=== PATIENT | male | born 1970 | race Caucasian/White ===

== ENCOUNTER → 2016-12-11 | Outpatient (CLI) | payer BC | LOC: ECHO 12:00 | DX: R55 Syncope and collapse (principal) | CPT/HCPCS: ECHO; 93306 ==

== ENCOUNTER → 2017-05-14 | Outpatient (CLI) | payer BC | LOC: EMI 15:56 | DX: M54.2 Cervicalgia (principal); M47.892 Other spondylosis, cervical region; M48.02 Spinal stenosis, cervical region; R20.0 Anesthesia of skin | CPT/HCPCS: 72141 ==

== ENCOUNTER → 2021-02-14 | Day surgery (SDC) | payer OTHER ==
[~2021-02-14] MED LIST: ALL DAY ALLERGY10 M2 PO; AMITRIPTYLINE H25 MG PO; AMLODIPINE BESYL5 MG PO; ASPIR-TRIN325 MG PO; AUGMENTIN 875-1 EACH PO; CELEBREX100 MG PO; CETIRIZINE HCL10 MG PO; CLOPIDOGREL75 MG PO; DEPAKOTE ER500 MG PO; DIVALPROEX SOD500 MG PO; FLEXERIL 10 MG10 MG PO; IBUPROFEN600 MG PO; LIPITOR TAB 1010 MG PO; LISINOPRIL20 MG PO; METOPROLOL TART25 MG PO; NORCO 5-325 TA1 EACH PO; NORFLEX 100 MG100 MG PO; OMEPRAZOLE20 M2 PO; PLAVIX75 MG PO; PROTONIX40 MG PO; QVAR REDIHALE10.6 G1 INH; SINGULAIR10 MG PO; SUMATRIPTAN SUC50 MG PO; TRAMADOL HCL50 MG PO; Voltaren Gel 1 % TOP
== END | disposition home or self-care (01) ==
LOC: OR 07:36
DX: K29.80 Duodenitis without bleeding (principal); K26.9 Duodenal ulcer, unspecified as acute or chronic, without hemorrhage or perforation; K29.70 Gastritis, unspecified, without bleeding; K21.9 Gastro-esophageal reflux disease without esophagitis; K63.89 Other specified diseases of intestine; K52.9 Noninfective gastroenteritis and colitis, unspecified; I10 Essential (primary) hypertension; E78.00 Pure hypercholesterolemia, unspecified; J20.9 Acute bronchitis, unspecified; J30.9 Allergic rhinitis, unspecified; G43.109 Migraine with aura, not intractable, without status migrainosus; M48.02 Spinal stenosis, cervical region; G89.29 Other chronic pain; M54.5 Low back pain; Z86.73 Personal history of transient ischemic attack (TIA), and cerebral infarction without residual deficits; F17.210 Nicotine dependence, cigarettes, uncomplicated
CPT/HCPCS: J2704; J7030

== ENCOUNTER → 2021-02-18 | Outpatient (CLI) | payer OTHER | LOC: KOH-I 13:59 | DX: R91.1 Solitary pulmonary nodule (principal); R91.8 Other nonspecific abnormal finding of lung field | CPT/HCPCS: 71250 ==

== ENCOUNTER 2021-05-15 20:07 | Emergency (ER) | payer OTHER ==
[2021-05-15 21:03] LABS: HEMOGLOBIN 14.8 gm/dl (14.0-17.5); RED BLOOD COUNT 4.8 M/UL (4.20-5.50); WHITE BLOOD COUNT 8.7 K/UL (4.5-11.0)
[2021-05-15 21:19] LABS: BUN/CREATININE RATIO 21 (0-10)
== END 2021-05-15 22:37 | disposition home or self-care (01) ==
LOC: ER1 20:07
PROVIDERS: Family Medicine
DX: R25.1 Tremor, unspecified (principal); R51.9 Headache, unspecified; F17.200 Nicotine dependence, unspecified, uncomplicated; Z90.89 Acquired absence of other organs
CPT/HCPCS: 80053; 82550; 82553; 83874; 84484; 85025; 99284

== ENCOUNTER 2021-06-23 13:50 | Emergency (ER) | payer OTHER ==
[2021-06-23 15:34] LABS: HEMOGLOBIN 16.9 gm/dl (14.0-17.5); RED BLOOD COUNT 5.46 M/UL (4.20-5.50); WHITE BLOOD COUNT 11.2 K/UL (4.5-11.0)
[2021-06-23 15:53] LABS: BUN/CREATININE RATIO 15 (0-10)
== END 2021-06-23 18:27 | disposition home or self-care (01) ==
LOC: ER1 13:50
PROVIDERS: Physician Assistant Medical
DX: R51.9 Headache, unspecified (principal)
CPT/HCPCS: 70450; 80053; 85025; 85652; 86140; 96372; 99284; J1885

== ENCOUNTER 2021-07-02 15:36 | Observation (INO) | payer OTHER ==
[~2021-07-02] VITALS: Ht 177.8 cm; Wt 88.0 kg
[2021-07-02 16:26] LABS: HEMOGLOBIN 16.2 gm/dl (14.0-17.5); RED BLOOD COUNT 5.28 M/UL (4.20-5.50)
[2021-07-02 17:05] LABS: BUN/CREATININE RATIO 15 (0-10)
[2021-07-03 06:57] LABS: HEMOGLOBIN 16.7 gm/dl (14.0-17.5); RED BLOOD COUNT 5.37 M/UL (4.20-5.50); WHITE BLOOD COUNT 9.8 K/UL (4.5-11.0)
[2021-07-03 07:32] LABS: BUN/CREATININE RATIO 19 (0-10)
[2021-07-04 06:45] LABS: HEMOGLOBIN 15.9 gm/dl (14.0-17.5); RED BLOOD COUNT 5.46 M/UL (4.20-5.50); WHITE BLOOD COUNT 9.9 K/UL (4.5-11.0)
[2021-07-04 06:57] LABS: BUN/CREATININE RATIO 17 (0-10)
[2021-07-04] MEDS ORDERED: LIPITOR40 MG PO (09:24)
== END 2021-07-04 10:46 | disposition home or self-care (01) ==
LOC: ER1 15:36 → CDU 19:00 → M/S 23:43
PROVIDERS: Nurse Practitioner; ADMIT Internal Medicine
DX: R07.89 Other chest pain (principal); I10 Essential (primary) hypertension; E78.5 Hyperlipidemia, unspecified; G89.29 Other chronic pain; M54.9 Dorsalgia, unspecified; G40.909 Epilepsy, unspecified, not intractable, without status epilepticus; G43.909 Migraine, unspecified, not intractable, without status migrainosus; F17.210 Nicotine dependence, cigarettes, uncomplicated; Z20.822 Contact with and (suspected) exposure to COVID-19; Z79.02 Long term (current) use of antithrombotics/antiplatelets; Z79.891 Long term (current) use of opiate analgesic; Z79.899 Other long term (current) drug therapy; Z86.73 Personal history of transient ischemic attack (TIA), and cerebral infarction without residual deficits
CPT/HCPCS: ECHO; 36415; 71045; 72128; 78452; 80048; 80053; 80061; 81001; 82550; 82553; 83036; 83735; 83874; 83880; 84439; 84443; 84484; 85025; 85027; 85610; 93005; 93017; 93306; 99284; A9502; G0378; J2785; U0002

== ENCOUNTER → 2021-07-16 | Outpatient (CLI) | payer OTHER ==
[~2021-07-16] MED LIST changes: +LIPITOR40 MG PO
== END ==
LOC: EXRD 09:45
DX: R10.11 Right upper quadrant pain (principal); N20.0 Calculus of kidney
CPT/HCPCS: 76700

== ENCOUNTER → 2021-08-04 | Outpatient (CLI) | payer OTHER | LOC: US 08:51 | DX: N28.89 Other specified disorders of kidney and ureter (principal) ==

== ENCOUNTER 2021-08-10 20:40 | Emergency (ER) | payer OTHER ==
[2021-08-10 21:47] LABS: HEMOGLOBIN 18.2 gm/dl (14.0-17.5); RED BLOOD COUNT 6.02 M/UL (4.20-5.50)
[2021-08-10 22:08] LABS: BUN/CREATININE RATIO 17 (0-10)
[2021-08-10] MEDS ORDERED: ZOFRAN ODT 4 MG4 MG SL (23:32)
== END 2021-08-10 23:45 | disposition home or self-care (01) ==
LOC: ER1 20:40
PROVIDERS: Emergency Medicine
DX: A08.4 Viral intestinal infection, unspecified (principal); E86.0 Dehydration
CPT/HCPCS: 71046; 80053; 81001; 83605; 83735; 84100; 85025; 87040; 87086; 93005; 96374; 96375; 99284; J1885; J2270; J2405; Q9967

== ENCOUNTER → 2022-02-17 | Outpatient (CLI) | payer OTHER ==
[~2022-02-17] MED LIST changes: +IBUPROFEN800 MG PO; +ZOFRAN ODT 4 MG4 MG SL
== END ==
LOC: RAD 12:01
DX: M25.572 Pain in left ankle and joints of left foot (principal); M54.50 Low back pain, unspecified; M47.816 Spondylosis without myelopathy or radiculopathy, lumbar region
CPT/HCPCS: 72110; 73610; 81001; 87086

== ENCOUNTER → 2022-05-29 14:10 | Emergency (ER) | payer OTHER ==
[~2022-05-29 14:10] MED LIST changes: +MECLIZINE HCL25 MG PO; +ONDANSETRON ODT4 MG SL
[2022-05-29 14:55] LABS: RED BLOOD COUNT 5.25 M/UL (4.20-5.50); WHITE BLOOD COUNT 6.9 K/UL (4.5-11.0)
[2022-05-29 15:25] LABS: BUN/CREATININE RATIO 15 (0-10)
== END | disposition home or self-care (01) ==
LOC: ER1 14:10
DX: R73.9 Hyperglycemia, unspecified (principal); R42 Dizziness and giddiness; E78.5 Hyperlipidemia, unspecified; I10 Essential (primary) hypertension; G43.909 Migraine, unspecified, not intractable, without status migrainosus
CPT/HCPCS: 71046; 80053; 81001; 82550; 82553; 84484; 85025; 87086; 93005; 96374; 96375; 99284; J1885; J2405